=== PATIENT | female | born 1945 | race Caucasian/White ===

== ENCOUNTER 2024-02-26 01:10 | Inpatient (IN) | payer MEDICARE, OTHER, SELFPAY ==
[2024-02-26 02:13] LABS: Actual Bicarbonate (HCO3v) 24.6 mEq/L (22-28); Analyzer IN Cardio ER; Calcium, Ionized (venous) 1.08 mmol/L (1.16-1.32); Chloride (VBG) 107 mmol/L (98-106); Hematocrit-VBG 39 % (36.0-47.0); Hemoglobin (Hb) 13.2 g/dL (11.7-16.1); Potassium (VBG) 3.52 mmol/L (3.70-5.30); Sodium 143 mmol/L (133-146); pH (venous) 7.407 (7.32-7.43)
[2024-02-26 02:17] LABS: #Basophils 0.03 10x3/uL (0.0-0.2); %Basophils 0.3 % (0.0-1.0); %Eosinophils 0.4 % (0.0-10.0); %Lymphocytes 28.1 % (21.0-51.0); %Monocytes 10.3 % (0.0-10.0); %Neutrophils 60.7 % (42.0-75.0); Hematocrit 38.8 % (36.0-47.0); Hemoglobin 12.1 g/dL (12.0-16.0); Mean Corpuscular HGB CONC 31.2 g/dL (32.0-36.0); Mean Corpuscular Hemoglobin 27.9 pg (27.0-31.0); Mean Corpuscular Volume 89.4 fL (78.0-98.0); Mean Platelet Volume 10.8 fL (7.4-10.4); Platelet Count 255 10x3/uL (130-400); RBC Distribution Width 13.8 % (11.5-14.5); Red Blood Cell (RBC) Count 4.34 mill/uL (4.20-5.40)
[2024-02-26 02:29] LABS: Bacteria/HPF None Seen HPF (None Seen); Bilirubin Negative (Negative); Blood, Urine Negative (Negative); CAUTI Indications for Culture Alt mental st,lethar; Clarity Clear (Clear); Glucose, Urine (Dipstick) Normal (Negative); Ketone, Urine 10 mg/dL (Negative); Leukocyte Negative Leu/uL (Negative); Nitrite Negative (Negative); Protein, Urine (Dipstick) Negative (Neg-Trace); RBC/HPF 0-3 HPF (0-3); Specific Gravity, Urine 1.049 (1.002-1.036); Squamous Epithelial None Seen HPF (0-3); WBC/HPF 0-3 HPF (0-3)
[2024-02-26 02:32] LABS: Amphetamine Not Detected (NotDetected); Barbiturates Screen Not Detected (NotDetected); Benzodiazepine Screen Not Detected (NotDetected); Cocaine Metabolite Screen Not Detected (NotDetected); Methadone Not Detected (NotDetected); Methamphetamine Not Detected (NotDetected); Opiate Screen Not Detected (NotDetected); Oxycodone Screen Not Detected (NotDetected); Phencyclidine (PCP) Not Detected (NotDetected); THC/Cannabinoid Screen Not Detected (NotDetected); Tricyclic Screen Not Detected (NotDetected); Urine Culture Reflex No No
[2024-02-26 02:40] LABS: Acetaminophen Less than 10 mcg/mL (Less than 10); Alcohol Less than 10.0 mg/dL (Less than 10); Salicylate Less than 8.0 mg/dL (Less than 8.0)
[2024-02-26 02:44] LABS: ALT (SGPT) 18 U/L (8-55); AST (SGOT) 36 U/L (5-34); Albumin 3.2 g/dL (3.4-4.8); Alkaline Phosphatase 107 U/L (40-110); Anion Gap 14 mmol/L (10-20); BUN (Urea Nitrogen) 10 mg/dL (9.8-20.1); Bilirubin, Total 0.6 mg/dL (0.2-1.2); CK (CPK) 504 U/L (29-168); Calc. Creatinine Clearance 0 mL/min (70-130); Calcium 8.8 mg/dL (7.8-10.44); Carbon Dioxide 22 mmol/L (23-31); Chloride 109 mmol/L (98-107); Estimated GFR 69; Globulin 3.7 g/dL (2.4-3.5); Glucose 20 mg/dL (83-110); Potassium 3.5 mmol/L (3.5-5.1); Protein, Total 6.9 g/dL (5.8-8.1); Sodium 141 mmol/L (136-145)
[2024-02-26] MEDS ORDERED: Dextrose 50% Abboject 50 ML SYRINGE ONE (03:38)
[2024-02-26] MEDS ORDERED: Ondansetron ODT 4 MG TAB PO PRN (05:26)
[2024-02-26] MEDS ORDERED: Ondansetron PF 4 MG/2 ML Vial IVP PRN (05:26)
[2024-02-26] MEDS ORDERED: Acetaminophen 650 MG Suppository PR PRN (05:26)
[2024-02-26] MEDS ORDERED: Acetaminophen 325 MG TAB PO PRN (05:26)
[2024-02-26] MEDS ORDERED: Calcium Carbonate 500 MG ChewTAB PO PRN (05:26)
[2024-02-26] MEDS ORDERED: Dextrose 5%-Lactated Ringers 1,000 ML IV SCH (05:30)
[2024-02-26] MEDS: Dextrose 5% in Water 1,000 ML IV SCH (10:01)
[2024-02-26] MEDS: Famotidine 20 MG TAB PO SCH (10:01)
[2024-02-26] MEDS: Famotidine/PF 20 mg/2ml Vial SLOW IVP SCH (10:01)
[2024-02-26 13:12] LABS: Hemoglobin A1c 6.3 % (4.0-6.0)
[2024-02-26 19:55] LABS: Free T4 (Free Thyroxine) 0.92 ng/dL (0.70-1.48)
[2024-02-27 04:57] LABS: #Basophils 0.05 10x3/uL (0.0-0.2); %Basophils 0.7 % (0.0-1.0); %Eosinophils 2.7 % (0.0-10.0); %Lymphocytes 28.1 % (21.0-51.0); %Monocytes 11.4 % (0.0-10.0); Hematocrit 38.2 % (36.0-47.0); Mean Corpuscular HGB CONC 31.4 g/dL (32.0-36.0); Mean Corpuscular Hemoglobin 27.6 pg (27.0-31.0); Mean Corpuscular Volume 87.8 fL (78.0-98.0); Mean Platelet Volume 11.2 fL (7.4-10.4); Platelet Count 255 10x3/uL (130-400); RBC Distribution Width 13.7 % (11.5-14.5); Red Blood Cell (RBC) Count 4.35 mill/uL (4.20-5.40)
[2024-02-27 05:08] LABS: Anion Gap 14 mmol/L (10-20); BUN (Urea Nitrogen) 7 mg/dL (9.8-20.1); Calc. Creatinine Clearance 79 mL/min (70-130); Calcium 8.7 mg/dL (7.8-10.44); Carbon Dioxide 24 mmol/L (23-31); Chloride 110 mmol/L (98-107); Estimated GFR 67; Glucose 161 mg/dL (83-110); Potassium 3.7 mmol/L (3.5-5.1); Sodium 144 mmol/L (136-145)
[2024-02-27 05:25] LABS: ALT (SGPT) 20 U/L (8-55); AST (SGOT) 32 U/L (5-34); Albumin 3.1 g/dL (3.4-4.8); Alkaline Phosphatase 110 U/L (40-110); Bilirubin, Direct 0.4 mg/dL (0.1-0.3); Protein, Total 6.2 g/dL (5.8-8.1)
[2024-02-27] MEDS ORDERED: Electrolyte Replacement Protocol 1 EACH FS ONE (09:03)
[2024-02-27] MEDS ORDERED: Electrolyte Replacement Protocol FS PRN (09:15)
[2024-02-27] MEDS: Magnesium 2 GM/50 ML(in water) 2 GM in Premix 1 BAG IVPB SCH (10:21)
[2024-02-27] MEDS ORDERED: Labetalol HCl 100 MG/20 ML VIAL SLOW IVP PRN (16:32)
[2024-02-27] MEDS ORDERED: Insulin Regular, Human 100 UNIT/ML 10 ML VIAL SC PRN (16:52)
[2024-02-27] MEDS ORDERED: Glucagon 1 MG/ML KIT IM PRN (16:52)
[2024-02-27] MEDS ORDERED: Dextrose 5% in Water 1,000 ML IV PRN (16:52)
[2024-02-27] MEDS: D5 1/2 NS w/20 mEq KCL 1,000 ML IV SCH (17:34)
[2024-02-27] MEDS: cefTRIAXone\\ROCEPHIN 1 GM in Sodium Chloride 0.9% 100 ML IVPB SCH (17:36)
[2024-02-27] MEDS ORDERED: Losartan 25 MG TAB PO SCH (21:00)
[2024-02-27] MEDS ORDERED: Thiamine 100 MG TAB PO SCH (21:00)
[2024-02-27] MEDS ORDERED: Aspirin 300 MG Suppository PR SCH (21:00)
[2024-02-27] MEDS: QUEtiapine 25 MG TAB PO SCH (21:34)
[2024-02-27] MEDS: Cholecalciferol 1,000 UNITS (25 MCG) TAB PO SCH (21:34)
[2024-02-27] MEDS: Cyanocobalamin (Vitamin B-12) 1,000 MCG TAB PO SCH (21:34)
[2024-02-27] MEDS: Atorvastatin Calcium 40 MG TAB PO SCH (21:34)
[2024-02-27] MEDS: Multivit, Therapeutic 1 TAB PO SCH (21:34)
[2024-02-27] MEDS: Thiamine HCl 200 MG/2 ML VIAL SLOW IVP SCH (21:34)
[2024-02-27] MEDS: Folic Acid 1 MG TAB PO SCH (21:34)
[2024-02-28] MEDS: Dexmedetomidine In 0.9 % NaCl 100 ML IV SCH (00:41)
[2024-02-28 03:41] LABS: #Basophils 0.08 10x3/uL (0.0-0.2); %Basophils 1.2 % (0.0-1.0); %Eosinophils 5.9 % (0.0-10.0); %Lymphocytes 23.7 % (21.0-51.0); %Monocytes 10.3 % (0.0-10.0); %Neutrophils 58.7 % (42.0-75.0); Hematocrit 39.3 % (36.0-47.0); Mean Corpuscular HGB CONC 30.5 g/dL (32.0-36.0); Mean Corpuscular Hemoglobin 27.5 pg (27.0-31.0); Mean Corpuscular Volume 89.9 fL (78.0-98.0); Mean Platelet Volume 11.4 fL (7.4-10.4); Platelet Count 237 10x3/uL (130-400); RBC Distribution Width 13.7 % (11.5-14.5); Red Blood Cell (RBC) Count 4.37 mill/uL (4.20-5.40)
[2024-02-28 04:01] LABS: CK (CPK) 432 U/L (29-168); Cardiac Risk 2.9 (Less than 4.5); Cholesterol 206 mg/dl (< 200 Desired); HDL Cholesterol 72 mg/dL (>60 Neg Risk); LDL Cholesterol, Calculated 115 mg/dL; Magnesium 2.1 mg/dL (1.6-2.6); Triglycerides 96 mg/dL (Less than 150)
[2024-02-28 06:04] LABS: CRP,High Sensitivity (Inhouse) 1.38 mg/dL (< or = 0.5)
[2024-02-28 06:05] LABS: ALT (SGPT) 20 U/L (8-55); AST (SGOT) 29 U/L (5-34); Albumin 2.8 g/dL (3.4-4.8); Alkaline Phosphatase 101 U/L (40-110); Anion Gap 14 mmol/L (10-20); BUN (Urea Nitrogen) 11 mg/dL (9.8-20.1); Bilirubin, Total 0.7 mg/dL (0.2-1.2); Calc. Creatinine Clearance 85 mL/min (70-130); Calcium 8.6 mg/dL (7.8-10.44); Carbon Dioxide 24 mmol/L (23-31); Chloride 110 mmol/L (98-107); Estimated GFR 74; Globulin 3.5 g/dL (2.4-3.5); Glucose 151 mg/dL (83-110); Potassium 3.7 mmol/L (3.5-5.1); Protein, Total 6.3 g/dL (5.8-8.1); Sodium 144 mmol/L (136-145)
[2024-02-28] MEDS: Levothyroxine Sodium 88 MCG TAB PO SCH (06:34)
[2024-02-28] MEDS: Heparin 5,000 UNITS/ML VIAL SC SCH (08:31)
[2024-02-28] MEDS: Aspirin 81 mg Enteric Coated Tablet PO SCH (13:20)
[2024-02-28] MEDS: Insulin Glargine 30 UNITS/0.3 ML VIAL SC SCH (18:12)
[2024-02-28] MEDS: Insulin Regular 300 UNITS/3 ML VIAL SC PRN (18:13)
[2024-02-28 18:53] LABS: Anion Gap 15 mmol/L (10-20); BUN (Urea Nitrogen) 16 mg/dL (9.8-20.1); Calc. Creatinine Clearance 80 mL/min (70-130); Calcium 8.2 mg/dL (7.8-10.44); Carbon Dioxide 18 mmol/L (23-31); Chloride 104 mmol/L (98-107); Estimated GFR 69; Glucose 613 mg/dL (83-110); Potassium 4.5 mmol/L (3.5-5.1); Sodium 132 mmol/L (136-145)
[2024-02-28] MEDS: Gabapentin 100 MG CAP PO SCH (20:49)
[2024-02-28] MEDS: Amlodipine 5 MG TAB PO SCH (20:49)
[2024-02-28] MEDS: Docusate 100 MG CAP PO SCH (20:50)
[2024-02-28] MEDS: Insulin Regular, Human 100 UNIT/ML 10 ML VIAL SC PRN (21:46)
[2024-02-29 04:03] LABS: #Basophils 0.05 10x3/uL (0.0-0.2); %Basophils 0.9 % (0.0-1.0); %Eosinophils 3.6 % (0.0-10.0); %Lymphocytes 25.7 % (21.0-51.0); %Monocytes 11.9 % (0.0-10.0); %Neutrophils 57.6 % (42.0-75.0); Hematocrit 37.7 % (36.0-47.0); Hemoglobin 11.6 g/dL (12.0-16.0); Mean Corpuscular HGB CONC 30.8 g/dL (32.0-36.0); Mean Corpuscular Hemoglobin 27.5 pg (27.0-31.0); Mean Corpuscular Volume 89.3 fL (78.0-98.0); Mean Platelet Volume 11.1 fL (7.4-10.4); Platelet Count 257 10x3/uL (130-400); RBC Distribution Width 13.4 % (11.5-14.5); Red Blood Cell (RBC) Count 4.22 mill/uL (4.20-5.40)
[2024-02-29 04:47] LABS: Anion Gap 12 mmol/L (10-20); BUN (Urea Nitrogen) 15 mg/dL (9.8-20.1); Calc. Creatinine Clearance 79 mL/min (70-130); Calcium 8.9 mg/dL (7.8-10.44); Carbon Dioxide 24 mmol/L (23-31); Chloride 109 mmol/L (98-107); Estimated GFR 67; Glucose 17 mg/dL (83-110); Potassium 3.3 mmol/L (3.5-5.1); Sodium 142 mmol/L (136-145)
[2024-02-29] MEDS: Dextrose 50% Abboject 50 ML SYRINGE SLOW IVP PRN (04:49)
[2024-02-29] MEDS: Magnesium 2 GM/50 ML(in water) 2 GM in Premix 1 BAG IVPB SCH (07:46)
[2024-02-29] MEDS ORDERED: Insulin Regular 300 UNITS/3 ML VIAL SC PRN (07:51)
[2024-02-29] MEDS ORDERED: Insulin Regular, Human 100 UNIT/ML 10 ML VIAL SC PRN (08:15)
[2024-02-29] MEDS ORDERED: Insulin Glargine 30 UNITS/0.3 ML VIAL SC SCH (09:00)
[2024-02-29 09:23] VITALS: TEMP 97.8
[2024-02-29] MEDS: Potassium Chloride 20 MEQ TAB PO SCH (10:33)
[2024-02-29] MEDS ORDERED: Lorazepam 2 MG/ML VIAL SLOW IVP SCH (13:00)
[2024-02-29 13:16] VITALS: BP 149/77
[2024-02-29 15:24] VITALS: BMI 35.5
[2024-02-29] MEDS: Losartan 25 MG TAB PO SCH (17:34)
[2024-02-29] MEDS ORDERED: Lorazepam 2 MG/ML VIAL SLOW IVP PRN (18:50)
[2024-02-29] MEDS ORDERED: Thiamine 100 MG TAB PO SCH (21:00)
[2024-02-29] MEDS ORDERED: Amlodipine 5 MG TAB PO SCH (21:00)
[2024-03-01] MEDS ORDERED: Losartan 25 MG TAB PO SCH (09:00)
== END 2024-02-29 21:35 | disposition home or self-care (01) | DRG 871 ==
LOC: ERS 01:10 → IMCU/EMU 06:55
PROVIDERS: ADMIT Student in an Organized Health Care Education/Training Program; ATTEND Internal Medicine
PROC: XX20X89 Monitoring of Brain Electrical Activity, Computer-aided Detection and Notification, New Technology Group 9 (ICD-10-PCS; principal; 2024-02-26)
DX: A41.9 Sepsis, unspecified organism (principal); G93.41 Metabolic encephalopathy; N39.0 Urinary tract infection, site not specified; J90 Pleural effusion, not elsewhere classified; F05 Delirium due to known physiological condition; R65.20 Severe sepsis without septic shock; E11.649 Type 2 diabetes mellitus with hypoglycemia without coma; R33.9 Retention of urine, unspecified; E03.9 Hypothyroidism, unspecified; W19.XXXA Unspecified fall, initial encounter; I12.9 Hypertensive chronic kidney disease with stage 1 through stage 4 chronic kidney disease, or unspecified chronic kidney disease; N18.2 Chronic kidney disease, stage 2 (mild); E11.22 Type 2 diabetes mellitus with diabetic chronic kidney disease; E87.6 Hypokalemia; E83.42 Hypomagnesemia; R53.81 Other malaise; Z88.2 Allergy status to sulfonamides; Z88.1 Allergy status to other antibiotic agents
CPT/HCPCS: 36415; 36416; 51702; 70450; 71045; 74176; 80048; 80053; 80061; 80076; 80306; 80307; 81001; 82140; 82550; 82607; 82805; 83036; 83605; 83735; 84439; 84443; 84481; 85025; 86141; 87040; 93005; 93306; 96374; J0696; J1644; J1815; J3411; J3475; J3480; J3490; J7070; J7999